=== PATIENT | female | born 1975 | race Caucasian/White ===

== ENCOUNTER 2018-06-12 22:33 | Observation (INO) | payer OTHER ==
[2018-06-12 23:26] LABS: ABS Basophils 0.1 10^3/ul (0-0.2); ABS Eosinophils 0.1 10^3/ul (0-0.6); ABS Lymphocytes 1.5 10^3/ul (1.0-4.8); ABS Monocytes 0.8 10^3/ul (0-0.8); ABS Neutrophils 9.5 10^3/ul (1.5-7.7); ABS Nucleated RBC 0 10^3/ul; Eosinophil % 0.5 %; Hematocrit 34 % (33-41); Hemoglobin 11.1 g/dL (12.0-16.0); Lymphocyte % 12.4 %; Mean Corpuscular HGB Conc 33 g/dL (31-36); Mean Corpuscular Hemoglobin 27 pg (27-31); Mean Corpuscular Volume 80 fL (80-97); Mean Platelet Volume 7.5 fL (7.4-10.4); Nucleated Red Blood Cells % 0; Platelet Count 240 10^3/uL (150-450); Red Blood Count 4.17 10^6 /uL (3.70-4.87); Red Cell Distribution Width 14 % (10.5-15)
[2018-06-12 23:42] LABS: Albumin 3.7 g/dL (3.2-5.2); Albumin/Globulin Ratio 1.2 (1-3); BUN/Creatinine Ratio 11.3 (8-20); C Reactive Protein 150.75 mg/L (<8.01); Calcium 9.1 mg/dL (8.6-10.3); EGFR African American 126.5 (>60); EGFR Non-African American 104.6 (>60); Globulin 3.1 g/dL (2-4); Potassium 4.1 mmol/L (3.5-5.0); Total Bilirubin 0.8 mg/dL (0.2-1.0); Total Protein 6.8 g/dL (6.4-8.9)
[2018-06-13 00:48] LABS: Urine Appearance Cloudy; Urine Bacteria 1+ (Absent); Urine Bilirubin Negative (Negative); Urine Blood 1+ (Negative); Urine Color Yellow; Urine Glucose Negative (Negative); Urine Ketones Negative (Negative); Urine Nitrite Negative (Negative); Urine Protein Negative (Negative); Urine Red Blood Cell Trace(0-2/hpf) (Absent); Urine Specific Gravity 1.015 (1.010-1.030); Urine Squamous Epithelial Cell Present (Absent); Urine Urobilinogen Negative (Negative); Urine White Blood Cell Trace(0-5/hpf) (Absent)
[2018-06-13] MEDS ORDERED: Dexamethasone IV* 4 MG/ML 1 ML (4 MG) IV SLOW PU ONE (01:01)
[2018-06-13] MEDS ORDERED: Iohexol 350* (CONTRAST) 500 ML MDV IV ONE (01:35)
[2018-06-13] MEDS ORDERED: Morphine 4 MG/ML VIAL (1 ml) 4 MG/ML VIAL IV ONE (01:50)
--- NOTE | 2018-06-13 02:42 | ED ---
Back Pain - HPI Summary HPI Summary: 43-year-old female presents with right leg pain and right-sided upper back pain today. She admits to some shortness breath. No chest pain. She denies any cough. No fever. States she does have some dysuria. States that she stopped her pain medication yesterday. she has had surgery on her back on the first. She states that her back pain has been improving and she has more function of her legs. she states that she is able to ambulate. She denies any weakness. No loss of bowel or bladder. denies any saddle anaesthesia. Denies any numbness or tingling into her arms. States then has been having swelling in her legs when she does not elevate them. Hasn't taking anything today for the pain. - History of Current Complaint Chief Complaint: EDGeneral Stated Complaint: BACK PAIN, DIFFICULTY BREATHING PER EMS Time Seen by Provider: 06/12/18 23:04 Pain Intensity: 5 - Allergies/Home Medications Allergies/Adverse Reactions: Allergies Allergy/AdvReac Type Severity Reaction Status Date / Time No Known Allergies Allergy Verified 06/07/13 08:11 PMH/Surg Hx/FS Hx/Imm Hx Endocrine/Hematology History: Denies: Hx Diabetes Cardiovascular History: Denies: Hx Hypertension GI History: Denies: Hx Diverticulosis History: Denies: Hx Renal Disease Musculoskeletal History: Reports: Other Musculoskeletal History - chronic lower back pain Sensory History: Reports: Hx Contacts or Glasses Denies: Hx Deafness, Hx Hearing Aid Opthamlomology History: Reports: Hx Contacts or Glasses - Cancer History Hx Chemotherapy: No Hx Radiation Therapy: No - Surgical History Surgery Procedure, Year, and Place: BACK - Immunization History Immunizations Up to Date: Yes Infectious Disease History: No Infectious Disease History: Denies: Traveled Outside the [place] in Last 30 Days - Family History Known Family History: Positive: Other - back pain - Social History Alcohol Use: Rare Substance Use Type: Reports: None Smoking Status (MU): Never Smoked Tobacco Review of Systems Negative: Fever Negative: Chest Pain Positive: Shortness Of Breath Positive: Myalgia - rib pain right and thoracic back pain All Other Systems Reviewed And Are Negative: Yes Physical Exam Triage Information Reviewed: Yes Vital Signs On Initial Exam: Initial Vitals Pulse Pulse Ox 105 97 06/12/18 22:37 06/12/18 22:37 Vital Signs Reviewed: Yes Appearance: Positive: Well-Appearing Skin: Positive: Warm, Dry Head/Face: Positive: Normal Head/Face Inspection Eyes: Positive: Normal, Conjunctiva Clear ENT: Positive: Pharynx normal Neck: Positive: Other: - full ROM neck, nontender neck Respiratory/Lung Sounds: Positive: Clear to Auscultation, Breath Sounds Present Cardiovascular: Positive: Normal, RRR Abdomen Description: Positive: Nontender, Soft Bowel Sounds: Positive: Present Musculoskeletal: Positive: Strength/ROM Intact - neck, Other - tenderness right side of thoracic back and tenderness over right ribs, sensation grossly intact upper extremity, good nurse monitoring strenght, good pulses Neurological: Positive: Normal, Normal Gait Psychiatric: Positive: Normal Diagnostics - Vital Signs Vital Signs Temp Pulse Resp BP Pulse Ox 06/13/18 01:58 20 06/13/18 01:00 88 96 06/13/18 00:38 94 114/68 97 06/13/18 00:22 100 98 06/13/18 00:08 108 122/83 97 06/13/18 00:00 97 99 06/12/18 23:38 94 125/71 97 06/12/18 23:08 113 108/63 99 06/12/18 23:00 16 06/12/18 22:38 98.9 F 102 9 133/78 98 06/12/18 22:37 105 97 - Laboratory Lab Results: Lab Results 06/12/18 06/12/18 06/13/18 Range/Units 23:20 23:20 00:10 WBC 12.0 H (3.5-10.8) 10^3/uL RBC 4.17 (3.70-4.87) 10^6 /uL Hgb 11.1 L (12.0-16.0) g/dL Hct 34 (33-41) % MCV 80 (80-97) fL MCH 27 (27-31) pg MCHC 33 (31-36) g/dL RDW 14 (10.5-15) % Plt Count 240 (150-450) 10^3/uL MPV 7.5 (7.4-10.4) fL Neut % (Auto) 79.2 % Lymph % (Auto) 12.4 % Crook % (Auto) 6.9 % Eos % (Auto) 0.5 % Baso % (Auto) 1.0 % Absolute Neuts (auto) 9.5 H (1.5-7.7) 10^3/ul Absolute Lymphs (auto) 1.5 (1.0-4.8) 10^3/ul Absolute Monos (auto) 0.8 (0-0.8) 10^3/ul Absolute Eos (auto) 0.1 (0-0.6) 10^3/ul Absolute Basos (auto) 0.1 (0-0.2) 10^3/ul Absolute Nucleated RBC 0 10^3/ul Nucleated RBC % 0 D-Dimer, Quantitative 441.0 H (Less Than 230) ng/mL Sodium 136 (135-145) mmol/L Potassium 4.1 (3.5-5.0) mmol/L Chloride 103 (101-111) mmol/L Carbon Dioxide 26 (22-32) mmol/L Anion Gap 7 (2-11) mmol/L BUN 7 (6-24) mg/dL Creatinine 0.62 (0.51-0.95) mg/dL Est GFR ( Amer) 126.5 (>60) Est GFR (Non-Af Amer) 104.6 (>60) BUN/Creatinine Ratio 11.3 (8-20) Glucose 129 H (70-100) mg/dL Calcium 9.1 (8.6-10.3) mg/dL Total Bilirubin 0.80 (0.2-1.0) mg/dL AST 53 H (13-39) U/L ALT 97 H (7-52) U/L Alkaline Phosphatase 99 (34-104) U/L C-Reactive Protein 150.75 H (<8.01) mg/L Total Protein 6.8 (6.4-8.9) g/dL Albumin 3.7 (3.2-5.2) g/dL Globulin 3.1 (2-4) g/dL Albumin/Globulin Ratio 1.2 (1-3) Urine Color Urine Appearance Urine pH (5-9) Ur Specific [place] (1.010-1.030) Urine Protein (Negative) Urine Ketones (Negative) Urine Blood (Negative) Urine Nitrate (Negative) Urine Bilirubin (Negative) Urine Urobilinogen (Negative) Ur Leukocyte Esterase (Negative) Urine WBC (Auto) (Absent) Urine RBC (Auto) (Absent) Ur Squamous Epith Cells (Absent) Urine Bacteria (Absent) Urine Glucose (Negative) 06/13/18 Range/Units 00:34 WBC (3.5-10.8) 10^3/uL RBC (3.70-4.87) 10^6 /uL Hgb (12.0-16.0) g/dL Hct (33-41) % MCV (80-97) fL MCH (27-31) pg MCHC (31-36) g/dL RDW (10.5-15) % Plt Count (150-450) 10^3/uL MPV (7.4-10.4) fL Neut % (Auto) % Lymph % (Auto) % Crook % (Auto) % Eos % (Auto) % Baso % (Auto) % Absolute Neuts (auto) (1.5-7.7) 10^3/ul Absolute Lymphs (auto) (1.0-4.8) 10^3/ul Absolute Monos (auto) (0-0.8) 10^3/ul Absolute Eos (auto) (0-0.6) 10^3/ul Absolute Basos (auto) (0-0.2) 10^3/ul Absolute Nucleated RBC 10^3/ul Nucleated RBC % D-Dimer, Quantitative (Less Than 230) ng/mL Sodium (135-145) mmol/L Potassium (3.5-5.0) mmol/L Chloride (101-111) mmol/L Carbon Dioxide (22-32) mmol/L Anion Gap (2-11) mmol/L BUN (6-24) mg/dL Creatinine (0.51-0.95) mg/dL Est GFR ( Amer) (>60) Est GFR (Non-Af Amer) (>60) BUN/Creatinine Ratio (8-20) Glucose (70-100) mg/dL Calcium (8.6-10.3) mg/dL Total Bilirubin (0.2-1.0) mg/dL AST (13-39) U/L ALT (7-52) U/L Alkaline Phosphatase (34-104) U/L C-Reactive Protein (<8.01) mg/L Total Protein (6.4-8.9) g/dL Albumin (3.2-5.2) g/dL Globulin (2-4) g/dL Albumin/Globulin Ratio (1-3) Urine Color Yellow Urine Appearance Cloudy Urine pH 6.0 (5-9) Ur Specific [place] 1.015 (1.010-1.030) Urine Protein Negative (Negative) Urine Ketones Negative (Negative) Urine Blood 1+ A (Negative) Urine Nitrate Negative (Negative) Urine Bilirubin Negative (Negative) Urine Urobilinogen Negative (Negative) Ur Leukocyte Esterase Trace A (Negative) Urine WBC (Auto) Trace(0-5/hpf) (Absent) Urine RBC (Auto) Trace(0-2/hpf) (Absent) Ur Squamous Epith Cells Present A (Absent) Urine Bacteria 1+ A (Absent) Urine Glucose Negative (Negative) Result Diagrams: 06/12/18 23:20 06/12/18 23:20 Lab Statement: Any lab studies that have been ordered have been reviewed, and results considered in the medical decision making process. Re-Evaluation - Re-Evaluation First Eval Re-Evaluation Time: 03:36 Change: Improved Comment: feeling better after morphine, pain resolved Back Pain Course/Dx - Course Course Of Treatment: 43-year-old female presents with right leg pain and right- sided upper back pain today. She admits to some shortness breath. No chest pain. She denies any cough. No fever. States she does have some dysuria. States that she stopped her pain medication yesterday. she has had surgery on her back on the first. She states that her back pain has been improving and she has more function of her legs. she states that she is able to ambulate. She denies any weakness. No loss of bowel or bladder. denies any saddle anaesthesia. Denies any numbness or tingling into her arms. States then has been having swelling in her legs when she does not elevate them. Hasn't taking anything today for the pain. On exam tenderness of the right thoracic back and right ribs. Lungs clear to auscultation. Heart regular rate and rhythm. Nontender neck and Full range of motion of the neck. wbc slightly elevated. d- dimer is elevated. with recent surgery concerned for PE. patient signed out to dr da silva pending CTA. - Diagnoses Differential Diagnosis/HQI/PQRI: Positive: Strain, Sprain, Other - PE, uti Provider Diagnoses: Pulmonary embolism, PNA (pneumonia) Discharge - Sign-Out/Discharge Documenting (check all that apply): Sign-Out Patient Signing out patient TO: Sandy Da Silva - Discharge Plan Condition: Stable Disposition: ADMITTED TO [facility] - Billing Disposition and Condition Condition: STABLE Disposition: Admitted to [facility]
[2018-06-13] MEDS ORDERED: Amoxicillin/Clavulanate TAB* 500 MG PO ONE (03:29)
--- NOTE | 2018-06-13 04:12 | ED ---
Progress - Progress Note Progress Note: Pt is a signout from DANNI Carrera, pending CTA chest/thorax results. - Results/Orders Results/Orders: CTA chest/thorax shows: 1. Mild right lower lobe pulmonary embolism. 2. Trace right pleural effusion and mild right lower lobe atelectasis with patchy infiltrate and possible consolidation. Pulmonary infarct is not excluded. 3. Slight interstitial prominence with minimal left lower lobe fibro- atelectatic change. Re-Evaluation - Re-Evaluation First Eval Re-Evaluation Time: 03:36 Change: Improved Comment: feeling better after morphine, pain resolved Course/Dx - Course Course Of Treatment: Pt is a signout from DANNI Carrera, pending CTA chest/ thorax results. CTA chest/thorax shows: 1. Mild right lower lobe pulmonary embolism. 2. Trace right pleural effusion and mild right lower lobe atelectasis with patchy infiltrate and possible consolidation. Pulmonary infarct is not excluded. 3. Slight interstitial prominence with minimal left lower lobe fibro-atelectatic change. I consulted with Dr. Quintero who evaluated the pt and determined she can be sent home after receiving a dose of Lovenox. - Diagnoses Provider Diagnoses: Pulmonary embolism, PNA (pneumonia) Discharge - Sign-Out/Discharge Documenting (check all that apply): Patient Departure, Receiving Sign-Out Receiving patient FROM: Yoon [place]on Patient Received Moderate/Deep Sedation with Procedure: No - Discharge Plan Condition: Stable Disposition: HOME Prescriptions: Amoxicillin/Clavulanate TAB* [Augmentin TAB 500 mg*] 500 mg PO BID #9 tab Patient Education Materials: Urinary Tract Infection in Women (ED), Back Pain ( ED) Referrals: [facility] [place] [facility] [Outside] Additional Instructions: take augmentin twice a day for 5 days can use muscle relaxer or steroid as prescribed Use ibuprofen or Tylenol for pain every 6 hours ice/heat area, move as much as possible Follow up with primary within 5 days Return to ED if develop any new or worsening symptoms - Billing Disposition and Condition Condition: STABLE Disposition: Home - Attestation Statements Document Initiated by Scribe: Yes Documenting Scribe: Ondina Michaels Provider For Whom Katy is Documenting (Include Credential): Sandy Da Silva MD. Scribe Attestation: Ondina Cornell, alfaibed for Sandy Da Silva MD. on 06/13/18 at 0615. Scribe Documentation Reviewed: Yes Provider Attestation: The documentation as recorded by the scribe, Ondina Michaels accurately reflects the service I personally performed and the decisions made by me, Sandy Da Silva MD. Status of Scribe Document: Viewed Consult Consult: [id number] - Spoke with Dr. Quintero who originally accepted the pt to [facility] [place] with dx including pulmonary embolism and PNA. After her consult with the pt, she stated the pt can be sent home after a dose of Lovenox.
[2018-06-13] MEDS ORDERED: Enoxaparin(*) 100 MG/ML SYR SUBCUT ONE (04:21)
[2018-06-13] MEDS ORDERED: Levofloxacin 750 MG IVPREMIX(* 750 MG/150 ML BAG IVPB ONE (04:22)
--- NOTE | 2018-06-13 06:06 | CONSULT ---
Subjective Date of Service: 06/13/18 Interval History: Hospitalist Consult Note: Called to evaluate patient on: 06/13/2018 Reason for consult: PE management Ms. Mcdonald is a 43 year old woman with recent L4-L5 herniated nucleus pulposus now s/p spinal surgery by Dr. Macdonald 1 week ago, who presents with acute Right upper back/shoulder pain and R lower rib pain for 1-2 days. She states that she has been mostly sedentary in the week preceding and the week following her surgery. She started to feel better about 2 days ago and was walking around when suddenly she experienced pleuritic R upper back and lower R rib pain. She denies shortness of breath, but states the pain was so bad that it limited her breathing. She denies fevers, chills, cough, night sweats, abdominal pain, n/v/c /d, dysurea, or asymmetric leg swelling. She thinks her legs both look more swollen the way they do when she is on a plane, but it has improved since elevation in the ER. On my interview, she has already received morphine and reports she no longer has pain. She prefers to go home. Review of Systems - Measurements Intake and Output: Intake and Output Last 24 Hours 06/10/18 06/11/18 06/12/18 06/13/18 06:59 06:59 06:59 06:59 Weight 207 lb Objective Active Medications: Enoxaparin Vital Signs - 8 hr 06/12/18 06/12/18 06/12/18 22:37 22:38 23:00 Temperature 98.9 F Pulse Rate 105 102 Respiratory 9 16 Rate Blood Pressure 133/78 (mmHg) O2 Sat by Pulse 97 98 Oximetry 06/12/18 06/12/18 06/13/18 23:08 23:38 00:00 Temperature Pulse Rate 113 94 97 Respiratory Rate Blood Pressure 108/63 125/71 (mmHg) O2 Sat by Pulse 99 97 99 Oximetry 06/13/18 06/13/18 06/13/18 00:08 00:22 00:38 Temperature Pulse Rate 108 100 94 Respiratory Rate Blood Pressure 122/83 114/68 (mmHg) O2 Sat by Pulse 97 98 97 Oximetry 06/13/18 06/13/18 06/13/18 01:00 01:08 01:38 Temperature Pulse Rate 88 92 93 Respiratory Rate Blood Pressure 117/70 124/72 (mmHg) O2 Sat by Pulse 96 98 97 Oximetry 06/13/18 06/13/18 06/13/18 01:58 02:00 02:08 Temperature Pulse Rate 98 88 Respiratory 20 Rate Blood Pressure 125/58 (mmHg) O2 Sat by Pulse 97 95 Oximetry 06/13/18 06/13/18 06/13/18 02:38 03:00 03:08 Temperature Pulse Rate 86 78 78 Respiratory Rate Blood Pressure 119/60 120/66 (mmHg) O2 Sat by Pulse 96 97 98 Oximetry 06/13/18 06/13/18 05:02 05:08 Temperature Pulse Rate 87 89 Respiratory Rate Blood Pressure 97/73 104/67 (mmHg) O2 Sat by Pulse 95 96 Oximetry Oxygen Devices in Use Now: None Appearance: well appearing, speaking in full sentences, AOx3 Ears/Nose/Mouth/Throat: Clear Oropharnyx, Mucous Membranes Moist Neck: NL Appearance and Movements; NL JVP Respiratory: Clear to Auscultation, - - chest pain reproducible on palpation over ribs on R side Cardiovascular: RRR Abdominal: NL Sounds; No Tenderness; No Distention, - - no suprapubic tenderness Extremities: - - wwp, no pitting edema, calves symmetric, no palpable vein Neurological: Alert and Oriented x 3 Result Diagrams: 06/12/18 23:20 06/12/18 23:20 Additional Lab and Data: Lab Results 06/12/18 06/12/18 06/13/18 Range/Units 23:20 23:20 00:10 WBC 12.0 H (3.5-10.8) 10^3/uL RBC 4.17 (3.70-4.87) 10^6 /uL Hgb 11.1 L (12.0-16.0) g/dL Hct 34 (33-41) % MCV 80 (80-97) fL MCH 27 (27-31) pg MCHC 33 (31-36) g/dL RDW 14 (10.5-15) % Plt Count 240 (150-450) 10^3/uL MPV 7.5 (7.4-10.4) fL Neut % (Auto) 79.2 % Lymph % (Auto) 12.4 % Gregory % (Auto) 6.9 % Eos % (Auto) 0.5 % Baso % (Auto) 1.0 % Absolute Neuts (auto) 9.5 H (1.5-7.7) 10^3/ul Absolute Lymphs (auto) 1.5 (1.0-4.8) 10^3/ul Absolute Monos (auto) 0.8 (0-0.8) 10^3/ul Absolute Eos (auto) 0.1 (0-0.6) 10^3/ul Absolute Basos (auto) 0.1 (0-0.2) 10^3/ul Absolute Nucleated RBC 0 10^3/ul Nucleated RBC % 0 D-Dimer, Quantitative 441.0 H (Less Than 230) ng/mL Sodium 136 (135-145) mmol/L Potassium 4.1 (3.5-5.0) mmol/L Chloride 103 (101-111) mmol/L Carbon Dioxide 26 (22-32) mmol/L Anion Gap 7 (2-11) mmol/L BUN 7 (6-24) mg/dL Creatinine 0.62 (0.51-0.95) mg/dL Est GFR ( Amer) 126.5 (>60) Est GFR (Non-Af Amer) 104.6 (>60) BUN/Creatinine Ratio 11.3 (8-20) Glucose 129 H (70-100) mg/dL Calcium 9.1 (8.6-10.3) mg/dL Total Bilirubin 0.80 (0.2-1.0) mg/dL AST 53 H (13-39) U/L ALT 97 H (7-52) U/L Alkaline Phosphatase 99 (34-104) U/L C-Reactive Protein 150.75 H (<8.01) mg/L Total Protein 6.8 (6.4-8.9) g/dL Albumin 3.7 (3.2-5.2) g/dL Globulin 3.1 (2-4) g/dL Albumin/Globulin Ratio 1.2 (1-3) Urine Color Urine Appearance Urine pH (5-9) Ur Specific Graham (1.010-1.030) Urine Protein (Negative) Urine Ketones (Negative) Urine Blood (Negative) Urine Nitrate (Negative) Urine Bilirubin (Negative) Urine Urobilinogen (Negative) Ur Leukocyte Esterase (Negative) Urine WBC (Auto) (Absent) Urine RBC (Auto) (Absent) Ur Squamous Epith Cells (Absent) Urine Bacteria (Absent) Urine Glucose (Negative) 06/13/18 Range/Units 00:34 WBC (3.5-10.8) 10^3/uL RBC (3.70-4.87) 10^6 /uL Hgb (12.0-16.0) g/dL Hct (33-41) % MCV (80-97) fL MCH (27-31) pg MCHC (31-36) g/dL RDW (10.5-15) % Plt Count (150-450) 10^3/uL MPV (7.4-10.4) fL Neut % (Auto) % Lymph % (Auto) % Gregory % (Auto) % Eos % (Auto) % Baso % (Auto) % Absolute Neuts (auto) (1.5-7.7) 10^3/ul Absolute Lymphs (auto) (1.0-4.8) 10^3/ul Absolute Monos (auto) (0-0.8) 10^3/ul Absolute Eos (auto) (0-0.6) 10^3/ul Absolute Basos (auto) (0-0.2) 10^3/ul Absolute Nucleated RBC 10^3/ul Nucleated RBC % D-Dimer, Quantitative (Less Than 230) ng/mL Sodium (135-145) mmol/L Potassium (3.5-5.0) mmol/L Chloride (101-111) mmol/L Carbon Dioxide (22-32) mmol/L Anion Gap (2-11) mmol/L BUN (6-24) mg/dL Creatinine (0.51-0.95) mg/dL Est GFR ( Amer) (>60) Est GFR (Non-Af Amer) (>60) BUN/Creatinine Ratio (8-20) Glucose (70-100) mg/dL Calcium (8.6-10.3) mg/dL Total Bilirubin (0.2-1.0) mg/dL AST (13-39) U/L ALT (7-52) U/L Alkaline Phosphatase (34-104) U/L C-Reactive Protein (<8.01) mg/L Total Protein (6.4-8.9) g/dL Albumin (3.2-5.2) g/dL Globulin (2-4) g/dL Albumin/Globulin Ratio (1-3) Urine Color Yellow Urine Appearance Cloudy Urine pH 6.0 (5-9) Ur Specific Graham 1.015 (1.010-1.030) Urine Protein Negative (Negative) Urine Ketones Negative (Negative) Urine Blood 1+ A (Negative) Urine Nitrate Negative (Negative) Urine Bilirubin Negative (Negative) Urine Urobilinogen Negative (Negative) Ur Leukocyte Esterase Trace A (Negative) Urine WBC (Auto) Trace(0-5/hpf) (Absent) Urine RBC (Auto) Trace(0-2/hpf) (Absent) Ur Squamous Epith Cells Present A (Absent) Urine Bacteria 1+ A (Absent) Urine Glucose Negative (Negative) Diagnostic Imaging: CT-PE: 1. Mild right lower lobe pulmonary embolism. 2. Trace R pleural effusion and mild RLL atelectasis with patchy infiltrate and possible consolidation. Pulmonary infarct not excluded. 3. Slight interstitial prominence with minimal LLL fibro-atelectatic change. Assessment/Plan - Billing Assessment/Recommendation: 43 year old previously healthy woman who presented over 1 week ago with back pain and focal neuro findings, now s/p diskectomy 06/05, presents with acute pleuritic upper back and R rib pain after being sedentary for several days. She was found to have a CT confirming PE, and is without hemodynamic compromise or hypoxia. 1. Pulmonary embolism: PESI class 1 - very low risk. Can have 1 dose of therapeutic lovenox now, with DOAC for discharge. Pt feels comfortable managing pain at home with ibuprofen. Pt to f/u with PCP within a week. Will need 3 months of AC for this provoked PE, with age-appropriate cancer screening as outpatient. We extensively discussed return precautions. 2. "Patchy infiltrate" on CT. Patient is without fevers, cough, rigors, or night sweats. While she does have leukocytosis, pt reports she recently took a dose of steroids (by NSGY) for possible nerve swelling. Reviewed CT with radiology who thought this finding was most likely atelectasis or pulmonary infarct. I think it is prudent to hold antibiotics for now. Educated patient to seek care immediately if she experiences fevers, cough, dyspnea, chills.
--- NOTE | 2018-06-13 06:47 | ED ---
Progress - Progress Note Progress Note: In reviewing patient's vital signs during her course of stay in the emergency room. Patient did have one reading with systolic blood pressure of 97. According to simplify PESI criteria, patient considered to be high risk to be discharged home on oral anticoagulation. Case discussed with hospitalist again, , she stated that she would discuss the case with the morning team and patient will be admitted by morning team. I did have discussion with the patient regarding the plan. Patient will be waiting for day hospitalist, Re-Evaluation - Re-Evaluation First Eval Re-Evaluation Time: 03:36 Change: Improved Comment: feeling better after morphine, pain resolved Course/Dx - Course Course Of Treatment: Upon taking d/c vitals, the pt had systolic blood pressure of 97/73, second reading 104/67, which disqualifies the pt from being "low risk " for her PESI score. I am not comfortable d/c'ing her home and am requesting that the pt be admitted. - Diagnoses Provider Diagnoses: Pulmonary embolism, PNA (pneumonia) Discharge - Sign-Out/Discharge Documenting (check all that apply): Patient Departure - Discharge Plan Condition: Stable Disposition: ADMITTED TO [facility] Prescriptions: Amoxicillin/Clavulanate TAB* [Augmentin TAB 500 mg*] 500 mg PO BID #9 tab Levofloxacin TAB* [Levaquin TAB*] 750 mg PO DAILY #7 tab Rivaroxaban TAB(*) [Xarelto 15 mg(*)] 15 mg PO BID #42 tab Patient Education Materials: Urinary Tract Infection in Women (ED), Back Pain ( ED) Referrals: [facility] [place] [facility]FERR[facility] [Outside] Additional Instructions: Please take your prescribed anticoagulants as instructed. take augmentin twice a day for 5 days can use muscle relaxer or steroid as prescribed Use ibuprofen or Tylenol for pain every 6 hours ice/heat area, move as much as possible Follow up with primary within 5 days Return to ED if develop any new or worsening symptoms - Billing Disposition and Condition Condition: STABLE Disposition: Admitted to [facility] - Attestation Statements Document Initiated by Scribe: Yes Documenting Scribe: Ondina Micahels Provider For Whom Anthonyibniurka is Documenting (Include Credential): Sandy Da Silva MD. Scribe Attestation: IOndina, anthonyibed for Sandy Da Silva MD. on 06/13/18 at 0711. Scribe Documentation Reviewed: Yes Provider Attestation: The documentation as recorded by the scribe, Ondina Michaels accurately reflects the service I personally performed and the decisions made by me, Sandy Da Silva MD. Status of Scribe Document: Viewed
[2018-06-13] MEDS ORDERED: Morphine 4 MG/ML VIAL (1 ml) 4 MG/ML VIAL IV PRN (06:53)
[2018-06-13] MEDS ORDERED: Ibuprofen TAB* 600 MG PO PRN (07:05)
[2018-06-13 10:32] VITALS: BP 100/39
[2018-06-13] MEDS ORDERED: Apixaban* 5 MG TAB PO SCH (19:00)
--- NOTE | 2018-06-13 23:54 | DS ---
CC: Sarahy Osei NP; Dr. Macdonald of Neurosurgery * DISCHARGE SUMMARY: DATE OF ADMISSION: 06/13/18 DATE OF DISCHARGE: 06/13/18 PRIMARY CARE PROVIDER: Sarahy Osei NP ATTENDING FOR THIS ADMISSION: Dr. Garcai.* (DICTATED BY KIRILL GEORGES NP) HOSPITAL COURSE: Please refer to admitting H and P from Dr. Quintero from this morning, but in short, Ms. Mcdonald is a 43-year-old female patient who is approximately 6 days out from a lumbar decompression surgery. She was recovering well from her surgery; however, she started having some radiating right-sided chest and shoulder pain approximately 24 hours before admission. The patient states that it was accompanied by shortness of breath with inspiration and an increase in pain. After the patient realized that she could not lie flat without having trouble breathing, she came to the emergency department for evaluation. Her D-dimer was noted to be elevated. She had a CTA of the chest, which showed a small right pulmonary embolus. Initial plan was that patient would get one dose of Lovenox and then be started on Eliquis as an outpatient; however, because she had one episode of hypotension with some mild tachycardia in the low 100s, she was kept for the day for observation. Upon evaluation this afternoon, the patient denies any fever, fatigue, or chills. She states the left-sided chest and rib pain is improved with pain medication. She is not acutely short of breath and denies any further constitutional complaints. We discussed at length her discharge plan including starting anticoagulation, use of incentive spirometry and pain medication as needed for the first few days. The patient is in agreement with being discharged to home with outpatient followup. REVIEW OF SYSTEMS: A 10-point review of systems is negative except as noted in hospital course above. PHYSICAL EXAMINATION: The patient is awake, alert, well appearing, in no acute distress. Vital signs are blood pressure 112/58, heart rate 93, respiratory rate 17, O2 saturation 97% on room air, temperature of 98. HEENT: The patient is atraumatic, normocephalic. PERRLA. Nonicteric sclerae. Oral mucosa is moist. Tongue is midline. Neck is supple, nontender. No JVD noted. No carotid bruit auscultated. Cardiovascular: S1, S2 present. No murmurs, gallops , or rubs noted. Rate and rhythm are currently regular. Lungs are clear bilaterally to auscultation, slightly diminished at the bases. No wheezing, rhonchi, or rales noted. Abdomen is soft, nontender, and nondistended. Positive bowel sounds in all 4 quadrants. Lumbar surgical wound is clean, dry and intact. She does have +2 distal pulses palpable. Trace bipedal edema, which by the patient's account has improved from this morning. Neurologic: Grossly intact with no focal deficits. Psychiatric: She is cooperative and appropriate. LABORATORY DATA: WBCs 12.0, RBCs 4.17, hemoglobin 11.1, hematocrit 34, platelets 240. D-dimer 441. Sodium 136, potassium 4.1, chloride 103, CO2 26, BUN 7, creatinine 0.62, GFR 104.6, glucose 129, calcium 9.1. Bilirubin 0.80, AST 53, ALT 97, alk phos 99, CRP 150.75, total protein 6.8. Urinalysis shows 1 + blood, trace leukocyte esterase, 1+ urine bacteria. IMAGING: CTA of the chest shows mild right lower lobe pulmonary embolism, trace right pleural effusion with mild right lower lobe atelectasis, small interstitial prominence and minimal left lower lobe fibroatelectatic change. DISCHARGE DIAGNOSES: 1. Postoperative pulmonary embolus. 2. Patchy infiltrate on CT without fever, likely related to postoperative atelectatic changes. 3. Possible urinary tract infection. MEDICATIONS FOR DISCHARGE: Include: 1. Oxycodone 1 to 2 tablets q.4 hours as needed. 2. Eliquis 10 mg p.o. 2 times a day for 7 days, then 5 mg p.o. 2 times a day thereafter. 3. Augmentin 875 one tablet 2 times a day for 5 days. DISPOSITION: The patient is discharged to home in stable condition. FOLLOWUPS: The patient was instructed to follow up with her primary care provider, Ms. Osei, to continue to manage her anticoagulation. She was also instructed to follow up with Dr. Macdonald of Surgery regarding her recent lumbar decompression. The patient was discharged to home in stable condition. All questions were answered. The patient stated understanding of her discharge instructions, new medications and followups. TIME SPENT: Approximately 45 minutes planning discharge plan of care, medications and followups. KIRILL GEORGES, TAILOR HELPER [id number]/[facility] #: [id number] [facility] HOSPITALShari
[2018-06-20] MEDS ORDERED: Apixaban* 5 MG TAB PO SCH (19:00)
== END 2018-06-13 16:53 | disposition home or self-care (01) ==
LOC: ED 22:33 → MEDTELE 06-13 06:53
PROVIDERS: ADMIT Internal Medicine; ATTEND Student in an Organized Health Care Education/Training Program
DX: R07.9 Chest pain, unspecified (principal); M25.519 Pain in unspecified shoulder; R06.02 Shortness of breath; I26.99 Other pulmonary embolism without acute cor pulmonale; J90 Pleural effusion, not elsewhere classified; M54.5 Low back pain; R07.81 Pleurodynia; M51.26 Other intervertebral disc displacement, lumbar region; Z98.890 Other specified postprocedural states; I95.9 Hypotension, unspecified; Z79.01 Long term (current) use of anticoagulants; J98.11 Atelectasis
CPT/HCPCS: 36415; 71275; 80053; 81003; 81015; 85025; 85379; 86140; 87040; 87077; 87086; 87186; 96372; 96374; 96375; 99284; A9270-GY; G0378; J1100; J1650; J2270; Q9967